=== PATIENT | female | born 1985 | race Hispanic/Latino ===

== ENCOUNTER 2025-07-17 18:40 | Emergency (ER) | payer OTHER ==
[~2025-07-17] VITALS: Ht 162.6 cm; Wt 81.6 kg
[2025-07-17 19:55] VITALS: PULSE 70; RESP 20; TEMP 98.4
[2025-07-17 19:55] LABS: BASOPHILS % 0.5 % (0.0-1.0); EOSINOPHILS % 1.7 % (0.0-6.0); LYMPHOCYTES % 26.7 % (18.0-39.1); MONOCYTES % 7.6 % (4.4-11.3); NEUTROPHILS % 63.1 % (38.7-80.0); RED CELL DISTRIBUTION WIDTH 12.3 % (11.7-14.4)
[2025-07-17 20:18] LABS: EST GLOMERULAR FILTRATION RATE 96 ML/MIN (>=60)
[2025-07-17] MEDS: GUAIFENESIN 600MG/DEXTROMETHORPHAN 30MG TABSR PO STA (20:22)
[2025-07-17] MEDS: KETOROLAC TROMETHAMINE 30 MG/ML VIAL IV STA (20:22)
[2025-07-17 20:24] LABS: LEUKOCYTE ESTERASE ,URINE NEGATIVE (NEGATIVE); PROTEIN,URINE DIPSTICK NEGATIVE (NEGATIVE); URINE UROBILINOGEN 1 mg/dL (0.2 - 1)
[2025-07-17 20:26] LABS: EPITHELIAL CELLS,URINE MODERATE /LPF; WBC,URINE (MAN) 0-5 /HPF (0-5)
[2025-07-17 20:27] LABS: CORONAVIRUS COVID-19 AG NEGATIVE (NEGATIVE)
[2025-07-17] MEDS ORDERED: DOXYCYCLINE HY100 MG PO (20:51)
[2025-07-17 21:27] VITALS: BP 133/74; PULSE 71; RESP 18; TEMP 98.4; O2SAT 98
== END 2025-07-17 21:29 | disposition home or self-care (01) ==
LOC: ER 18:59
DX: R05.9 Cough, unspecified (principal); J06.9 Acute upper respiratory infection, unspecified; R73.9 Hyperglycemia, unspecified; E03.9 Hypothyroidism, unspecified; Z11.52 Encounter for screening for COVID-19
CPT/HCPCS: 36415; 71045; 80053; 81001; 83690; 84484; 84702; 85025; 87428; 99284; J1885; 93005